=== PATIENT | male | born 1960 | race Caucasian/White ===

== ENCOUNTER 2024-06-12 06:42 | Emergency (ER) | payer OTHER, SELFPAY ==
--- NOTE | ~2024-06-12 | CT_ITS ---
EXAMINATION: CT abdomen pelvis wo con DATE: 06/12/2024 07:51 INDICATION: Left flank pain TECHNIQUE: Computed tomography (CT) of the abdomen and pelvis was performed without intravenous contr ast. Automated exposure control and iterative reconstruction technique were employed. The dose-length product was 270.59 mGy-cm. COMPARISON: None FINDINGS: Lung bases are clear. Small sliding-type hiatal hernia which contains the wrap of a Cony fundoplica tion.. Surgical clips along the diaphragmatic both sides of the thoracic hiatus. There are a few subc entimeter low-attenuation hepatic cysts. A few splenic calcifications consistent with old granulomato us disease. Pancreas and bilateral adrenal glands are normal. 3 mm stone at the left ureterovesicular junction with mild left hydronephrosis. Bilateral renal cysts measuring up to 3.0 cm on the right. B ladder is normal. Bowels including the appendix are normal. No free intraperitoneal gas or fluid. No pathologically enlarged abdominal or pelvic lymphadenopathy. Severe lower lumbar spondylosis with L5- S1 instrumented anterior and posterior spinal fusion. IMPRESSION: 1. 3 mm stone at left ureterovesicular junction with mild left hydronephrosis. 2. Small sliding-type hiatal hernia containing the wrap of a Cony fundoplication. Reviewed, dictated and finalized at location A. IMPRESSION: 1. 3 mm stone at left ureterovesicular junction with mild left hydronephrosis. 2. Small sliding-type hiatal hernia containing the wrap of a Cony fundoplicat ion.
[2024-06-12 06:46] VITALS: BP 131/82; PULSE 71; RESP 18; TEMP 36.5; O2SAT 98
[2024-06-12 07:50] LABS: Add Urine Microscopic? YES; Appearance Urine Clear (Clear); Bacteria Urine None Seen /hpf; Bilirubin Urine Negative (Negative); Blood Urine 1+ (Negative); Color Urine Yellow (Yellow); Glucose Urine UA Negative (Negative); Ketones Urine Negative (Negative); Leukocyte Esterase Ur Negative LEU/UL (Negative); Nitrate Urine Negative (Negative); Non Pathogenic Casts 0-2; Protein Urine Negative (Negative); Specific Grav Ur 1.017 (1.001-1.035); Squamous Epithelial Cell Urine None Seen /hpf (Few); Urobilinogen Urine 0.2 mg/dL (<2.0); WBC Urine 0-5 /hpf (0-3); pH Urine 8.5 (5.0-9.0)
[2024-06-12] MEDS: ONDANSETRON INJ 4 MG/2 ML VIAL IV PUSH (07:50)
[2024-06-12] MEDS: SODIUM CHLORIDE 0.9% IV 1,000 ML 999 ML IV CONT (07:50)
[2024-06-12] MEDS: MORPHINE SULFATE (*CRX) 4 MG/ML INJ IV PUSH (07:51)
--- OUTSIDE RECORDS SUMMARY | 2024-06-12 08:13 | XMS_ITS | Clinical Summary ---
Author Organization [facility] Address [address] [place] [address] Care Team Providers Care Truck Driving Instructor Name Role Phone Avery Dotson MD Primary Care Provider [phone] Enedina Coello DO Unavailable [phone] Klever Norman MD Unavailable [phone] Allergies No known active allergies Medications lisinopriL (PRINIVIL,ZESTRI L) 20 mg tabletIndication s:hypertension Take 1 tablet (20 mg total) by mouth daily Active tamsulosin (FLOMAX) 0.4 mg extended release capsuleIndicatio ns:benign prostatic hyperplasia with lower urinary tract sx,urinary retention Take 1 capsule (0.4 mg total) by mouth daily with dinner 30 capsule 09/19/2021 Active Vitamin D2 1,250 mcg (50,000 unit) capsule TAKE ONE CAPSULE BY MOUTH ONCE A WEEK 12 capsule 02/09/2022 Active naproxen sodium 220 mg capsule Take 220 mg by mouth every 12 (twelve) hours Active Active Problems Problem Noted Date Diagnosed Date Status post lumbar and lumbo sacral fusion by anterior technique 10/28/2021 Assessment & Plan (01/20/2023 11:30 AM FINISHING RANGE OPERATOR): Mr. Munroe is status post anterior and posterior lumbar decompression and fusion in September of 2021. He has had improvement in his leg symptoms after surgery. The patient returned to work with limitations. 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 He reports extreme difficulty with performing his duties at work and is in the process of applying for disability. We discussed that I am happy to provide supporting documentation, but do not coordinate disability applications. He reports that he is difficulty performing any kind of activity after a full day's work. He reports that he is much more active when has not recently worked. We discussed that I do not see any compressive pathology that would benefit from surgical intervention. He does have collapse of the disc space at L4-5 Which may be related to his back pain. The other disc levels appear normal. We discussed that low back pain as a symptom is very difficult to treat and can be poorly responsive to surgical intervention. Compression of nerve roots Predictably responds well to surgical intervention. We discussed that there is no way to predict whether or not he will develop further pathology and be a candidate for surgical intervention in the future or what pathology will progress over time. He is aware that this practice is closing in April. We will not set up a scheduled appointment at this time. Consideration could be given to performing a functional capacity evaluation to objectively determine ability to work at his current job and limitations. Assessment & Plan (09/22/2022 4:05 PM CDT): Mr. Munroe is status post anterior and posterior lumbar fusion with good relief of his radicular symptoms. He has developed progressive back pain that is interfering with his ability to work and perform normal activities. He has significant disc collapse and Modic changes at the level above the fusion (L4-5). We will get a new MRI of the lumbar spine to evaluate for any progressive changes at this level. We will refer him to Dr. Lopez of pain management for possible L4-5 injections. We will give him a work slip to limit his activity to a normal 40 hour work week without over time as this exacerbates his low back pain. I plan to see him back in 4 months for re-evaluation with no new films at that time. Assessment & Plan (04/07/2022 1:29 PM FINISHING RANGE OPERATOR): Mr. Munroe is status post anterior and posterior L5-S1 decompression/fusion. He has had marked improvement in his back and leg symptoms. He is walking 4 miles day. 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 I have encouraged him to increase his activity in stable with the plan of return to work at full duty in July. If he feels that he cannot go back at this time, I would recommend formal functional capacity evaluation to evaluate any restrictions. I plan to see him back at 6 months with no new films at that time. Assessment & Plan (12/16/2021 1:31 PM CDT): PLAN: - Start physical therapy/aqua therapy/home exercise program - May wean off brace. - May resume NSAIDs as needed. WORK STATUS: - OFF WORK FOLLOW UP APPT: With Dr. Vasquez in 3 months with AP/LAT/Flexion/Extension Lumbar spine films and discussion regarding return to work. Preop MRI CD returned to the patient. Assessment & Plan (10/28/2021 10:25 AM CDT): PLAN: - continue activity restrictions as outlined prior to surgery - Renew medications: When due will renew Vitamin D3 50,000 for an additional 12 weeks. - Continue brace. - After 6 weeks, patient may resume NSAIDs, may increase activity as tolerated, wean off the brace. 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 Vasquez in 6-8 weeks with Flexion/Extension Lumbar spine films. Hiatal hernia with GERD 03/28/2019 Overview (03/28/2019): Added automatically from request for surgery [id number] Hypertensive lower esophageal sphincter 02/24/20 19 Overview (02/23/2019): Added automatically from request for surgery [id number] Dysphagia 02/23/2019 Overview (02/23/2019): Added automatically from request for surgery [id number] Hiatal hernia 02/23/2019 Overview (02/23/2019): Added automatically from request for surgery [id number] Family history of colon cancer 01/12/2019 Resolved Problems Problem Noted Date Diagnosed Date Resolved Date Lumbosacral radiculopathy at L4 09/18/2021 03/24/2022 Lumbar radiculopathy 09/15/2021 023 Intervertebral disc disorder with radiculopathy of lumbar region 07/17/2021 3 Assessment & Plan (07/17/2021 3:37 PM CDT): Mr. Munroe has a left L5 radiculopathy with motor weakness. Workup reveals severe foraminal stenosis at L5-S1 on the left with collapse of the disc space and decrease in the rostral caudal and anterior posterior dimensions. He will need interbody fusion to increase the disc space height. Ideally this would be done from the front. We will have him evaluated by Dr. Adrián holloway. He has had previous upper abdominal surgeries. If he is a candidate, I would prefer to do L5-S1 LONG TERM followed by a stage II posterior L5-S1 decompression and fusion/fixation. If we were not able to approach anteriorly, I would attempt to do an interbody fusion from the back (TLIF) with increased chance of failure for fusion. We will decide on the final procedure once Dr. Holloway has rendered his opinion. Encounters Date Type Department Care Team Description 06/01/2024 [facility] - [facility] Minimally Invasive Surgery [address], [place] [address] Rivka Cheatham from Last 3 Months Surgical History Surgery Date Site/Laterality Comments ELBOW SURGERY Left CARPAL TUNNEL RELEASE 01/06/2019 - 02/04/2019 Bilateral COLONOSCOPY ESOPHAGOSCOPY / EGD ESOPHAGEAL DILATION 01/06/2019 - 02/04/2019 ESOPHAGEAL MOTILITY STUDY 01/06/2019 - 02/04/2019 OTHER SURGICAL HISTORY Barium Swallow CARPAL TUNNEL RELEASE 03/08/2012 - 03/07/2013 CARPAL TUNNEL RELEASE 03/08/2016 - 03/07/2017 MICRODISCECTOMY LUMBAR 03/08/2007 - 03/07/2008 DIAPHRAGMATIC HERNIA REPAIR 06/07/2019 - 07/06/2019 LATERAL FUSION LUMBAR SPINE 09/05/2021 - 10/05/2021 S/P L5-S1 JULIA/PSF (Pedro) Medical History Medical History Date Comments Hypertension Dysphagia Hiatal hernia Neuritis or radiculitis due to rupture of lumbar intervertebral disc Obesity Family History Medical History Relation Name Comments Diabetes type II Father Hypertension Father valve replaced Father Diabetes type II Mother Hypertension Mother Stroke Mother Breast cancer Sister x3 sisters Diabetes Sister Hypertension Sister Relation Name Status Comments Father Mother Sister Social History Tobacco Use Types Packs/Day Years Used Date Smoking Tobacco: Never Smokeless Tobacco: Never Tobacco Cessation:Counseling Given: Not Answered Alcohol Use Standard Drinks/Week Comments Never 0 (1 standard drink = 0.6 oz pur e alcohol) Social Connection and Isolation Panel [NHANES] A nswer Date Recorded In a typical week, how many times do you talk on the phone with family, friends, or neighbors? Three times a week 09/17/19 How often do you get togethe r with friends or relatives? Twice a week 09/16/2021 How often do you attend chur ch or religion services? 1 to 4 times per year 09/16/2021 Do you belong to any clubs o r organizations such as synagogue groups, unions, fraternal or athletic groups, or school groups? No 09/16/2021 How often do you attend meet ings of the clubs or organizations you belong to? Never 09/16/2021 Are you , , di vorced, , never , or living with a partner? 09/16/2021 AUDIT-C Answer Date Recorded Q1: How often do you have a drink containing alcohol? Never 09/18/2021 Q2: How many drinks containi ng alcohol do you have on a typical day when you are drinking? Patient does not drink Q3: How often do you have si x or more drinks on one occasion? Never 09/18/2021 Overall Financial Resource Strain (CARDIA) Answe r Date Recorded How hard is it for you to pa y for the very basics like food, housing, medical care, and heating? Not very hard 09/16/2021 PHQ-2 Answer Date Recorded PHQ-2 Total Score 2 07/17/2021 PRAPARE - Transportation Answer Date Re corded In the past 12 months, has l ack of transportation kept you from medical appointments or from getting medications? No 09/05 In the past 12 months, has l ack of transportation kept you from meetings, work, or from getting things needed for daily living? No 09/16/2021 Sex and Gender Information Value Date Recorded Sex Assigned at Not on file Legal Sex Male 12:25 PM FINISHING RANGE OPERATOR Gender Identity Not on file Sexual Orientation Not on file Obstetrics History Last Filed Vital Signs Vital Sign Reading Time Taken Comments Blood Pressure 125/70 09/22/2022 11:16 AM CDT Pulse 56 09/22/2022 11:16 AM CDT Temperature 37 C (98.6 F) 10/28/2021 10:02 AM CDT Respiratory Rate 14 09/22/2022 11:16 AM CDT Oxygen Saturation 98% 09/19/2021 7:35 AM CDT Inhaled Oxygen Concentration - - Weight 91.2 kg (201 lb 1 oz) 09/18/2021 6:15 AM CDT Height 170.2 cm (5' 7 ) 09/18/2021 6:15 AM CDT Body Mass Index 31.49 09/18/2021 6:15 AM CDT Plan of Treatment Health Maintenance Due Date Last Done Comments Colon Cancer Screening-Colonoscopy 1960 Hepatitis C Screening 1960 Prostate Cancer Screening-PSA 1960 DTaP/Tdap/Td Vaccine (1 - Tdap) 11/02/1970 Hepatitis B Screening 11/02/1977 Regular Well Visit/Exam 18-64 11/02/1977 Zoster Vaccine (2 of 2) 01/23/2022 11/28/2021 Depression Screening 07/17/2022 07/17/2021 Covid-19 Vaccine ( - 2023-2 5 season) 2023 02/26/2021, 06/10/2020, 05/03/2020 Influenza Vaccine (#1) 2023 Pneumococcal vaccine <65 Aged Out No longer eligible based on patient's age to complete this topic Medical Devices Implanted Type Area Broomcorn Grader Device Identifier Shelf Expiration Date Model / Serial / Lot Wl [employer] [id number] [place] Bio-A 10x7cm Reinforcement Tissue Mesh Surgical Synthetic - [id number] - [id number] Implanted:Qty: 1 on 05/17/2019 by Prema Arellano MD at [facility] N/A: Esophagus Wl [employer] [id number] 01/30/2022 [id number] / [id number] / Allograft Bone Putty 2.5cc 700-025 - [id number] Implanted:Qty: 1 on 09/15/2021 by Lukas Vasquez MD at [facility] N/A: Spine Lumbar Cer[employer] Inc [id number] 01/06/2024 700-025 / / [id number] Core Link F3d [id number] 15d Cage Spinal Alif [id number] - [id number] - [id number] Implanted:Qty: 1 on 09/15/2021 by Lukas Vasquez MD at [facility] N/A: Spine Lumbar Core Link [id number] 05/09/2025 [id number] / [id number] / [id number] Allograft Bone Putty 2.5cc 700-025 - [id number] Implanted:Qty: 1 on 09/15/2021 by Lukas Vasquez MD at [facility] N/A: Spine Lumbar [employer] Inc [id number] 03/07/2024 700-025 / / [id number] Core Link Reinaldo 17mm Spine Lumbar Anterior Plate Bone Nonsterile 41450-171 - [id number] Implanted:Qty: 1 on 09/15/2021 by Lukas Vasquez MD at [facility] N/A: Spine Lumbar Core Link [id number] / / Core Link Reinaldo 5.5mm 28mm Spinal Lumbar Anterior Screw Bone Nonsterile 63615-50 - [id number] Implanted:Qty: 4 on 09/15/2021 by Lukas Vasquez MD at [facility] N/A: Spine Lumbar Core Link 97976-57 / / Core Link Screw [place] Mis Rb Set 20388-09 - [id number] Implanted:Qty: 4 on 09/18/2021 by Lukas Vasquez MD at [facility] N/A: Lumbar-Sacra l Spine Core Link [id number] / / Core Link Screw [place] Mis Rb Cannulated 7.5x40mm 63220-25 - [id number] Implanted:Qty: 4 on 09/18/2021 by Lukas Vasquez MD at [facility] N/A: Lumbar-Sacra l Spine Core Link [id number] / / Core Link Jose Spinal Thoracolumbar Pre Bent Mis Reduced Lordosis [place] 5.5x40mm [place] Chromium [id number] - [id number] Implanted:Qty: 2 on 09/18/2021 by Lukas Vasquez MD at [facility] N/A: Lumbar-Sacra l Spine Core Link [id number] / / Insurance [place]WM [place] O[place] Advance Directives For more information, please contact: [phone] * Full Code (Latest Code Status on File) Date Activated Date Inactivated Comments 09/18/2021 12:35 PM 09/19/2021 8:55 PM * Full Code Date Activated Date Inactivated Comments 09/15/2021 12:30 PM 09/16/2021 6:01 PM * Full Code Date Activated Date Inactivated Comments 05/17/2019 9:16 PM 05/19/2019 4:38 PM * Full Code Date Activated Date Inactivated Comments 03/17/2019 10:17 AM 03/17/2019 6:28 PM Care Teams Truck Driving Instructor Relationship Specialty Start Date End Date Avery Dotson MD [address] [place] [address] PCP - General Family Practice 02/21/19 Enedina Coello DO [address] [place] [address] Referring Physician Internal Medicine 02/22/19 Klever Norman MD [address] [place] [address] Referring Physician Gastroenterology 03/22/19
--- OUTSIDE RECORDS SUMMARY | 2024-06-12 08:13 | XMS_ITS | Encounter Summary ---
Author Organization [facility] Address [address] [place] [address] Phone Care Team Providers Care Traveling Sales Executive Name Role Phone Avery Dotson MD Primary Care Provider [phone] Encounter Details Date Type Department Care Team (Late st Contact Info) Description 03/17/2019 Scanned Document Non [facility] Referring Docs Provider, Outside Social History Tobacco Use Types Packs/Day Years Used Date Smoking Tobacco: Never Smokeless Tobacco: Never Sex and Gender Information Value Date Recorded Sex Assigned at Not on file Legal Sex Male 2:11 PM CDT Gender Identity Not on file Sexual Orientation Not on file documented as of this encounter Plan of Treatment Not on file documented as of this encounter Visit Diagnoses Not on filedocumented in this encounter Care Teams Traveling Sales Executive Relationship Specialty Start Date End Date Avery Dotson MD [address] [place] [id number] PCP - General Family Medicine 07/20/18 documented as of this encounter
--- OUTSIDE RECORDS SUMMARY | 2024-06-12 08:13 | XMS_ITS | Encounter Summary ---
Author Organization [facility] Address [address] [place] [address] Phone Care Team Providers Care Machine Sand Mixer Name Role Phone Avery Dotson MD Primary Care Provider [phone] Encounter Details Date Type Department Care Team (Late st Contact Info) Description 03/28/2019 Scanned Document Non [facility] Referring Docs Paulina Arellano MD [address] [facility] [address] [place] [address] Social History Tobacco Use Types Packs/Day Years [...] on filedocumented in this encounter Care Teams Machine Sand Mixer Relationship Specialty Start Date End Date Avery Dotson MD [address] [place] [address] PCP - General Family Medicine 07/20/18 documented as of this encounter
--- OUTSIDE RECORDS SUMMARY | 2024-06-12 08:13 | XMS_ITS | Encounter Summary ---
Author Organization [facility] Address [address] [place] [address] Phone Care Team Providers Care Cmo & President Name Role Phone Avery Dotson MD Primary Care Provider [phone] Encounter Details Date Type Department Care Team (Late st Contact Info) Description 11/21/2018 Telephone [facility] 1st Floor Gastroenterology [address] [place] [address] Enedina Coello DO Social History Tobacco Use Types Packs/Day Years Used Date Smoking Tobacco: Never Smokeless Tobacco: Never Sex and Gender Information Value Date Recorded Sex Assigned at Not on file Legal Sex Male 2:11 PM CDT Gender Identity Not on file Sexual Orientation Not on file documented as of this encounter Miscellaneous Notes * Telephone Encounter - Erma Coe - 01/04/2019 10:45 AM CDT pt's spouse Linnette calling to confirm prep. Had concerns with taking second dose so will have pt start 2nd dose of Miralax 6 hours prior to report time instead of the 4 hours. Linnette states will have to leave 2-3 hours prior to the report time to get here on time for the procedure * Telephone Encounter - Eri Cedeno LPN - 11/21/2018 1:15 PM CDT Pt a walk in from office. Patient was verified by name and and procedures scheduled. Pt was informed of need for inventory associate and driver/someone to stay in I while pt is here and take pt home and split prep. Split prep instructions verbally reviewed with patient and given along with note with prep medicationslisted. documented in this encounter Plan of Treatment Not on file documented as of this encounter Visit Diagnoses Not on filedocumented in this encounter Care Teams Cmo & President Relationship Specialty Start Date End Date Avery Dotson MD [address] [place] [address] PCP - General Family Medicine 07/20/18 documented as of this encounter
--- OUTSIDE RECORDS SUMMARY | 2024-06-12 08:13 | XMS_ITS | Referral Summary ---
Author Organization [facility] Address [address] [place] [address] Care Team Providers Care Yard Stocker Name Role Phone Avery Dotson MD Primary Care Provider Enedina Coello DO Unavailable [phone] Klever Norman MD Unavailable [phone] Encounters Date Type Department Care Team Description 06/01/2024 Telephone [facility]) - [facility] Minimally Invasive Surgery [address], [place] [address] Rivka Cheatham from Last 3 Months Allergies No known active allergies Medications lisinopriL [...] 10/28/2021 Assessment & Plan (01/20/2023 11:30 AM LEARNING CENTER COORDINATOR): Mr. Munroe is status post anterior and posterior lumbar decompression and fusion in September of 2021. He has had improvement in his leg symptoms after surgery. The patient returned to work with limitations. 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 He reports extreme difficulty with performing [...] time. Assessment & Plan (04/07/2022 1:29 PM LEARNING CENTER COORDINATOR): Mr. Munroe is status post anterior and posterior L5-S1 decompression/fusion. He has had marked improvement in his back and leg symptoms. He is walking 4 miles day. 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 [...] (03/28/2019): Added automatically from request for surgery [id number] Hypertensive lower esophageal sphincter 02/24/20 19 Overview (02/23/2019): Added automatically from request for surgery [id number] Dysphagia 02/23/2019 Overview (02/23/2019): Added automatically from request for surgery [id number] Hiatal hernia 02/23/2019 Overview (02/23/2019): Added automatically from request for surgery [id number] Family history of colon cancer 01/12/2019 Resolved [...] candidate, I would prefer to do L5-S1 SENIOR CARE followed by a stage II posterior L5-S1 decompression and fusion/fixation. If we were not able to approach anteriorly, I would attempt to do an interbody fusion from the back (TLIF) with increased chance of failure for fusion. We will decide on the final procedure once Dr. Holloway has rendered his opinion. Social History Tobacco Use Types Packs/Day Years [...] often do you attend chur ch or restorationist services? 1 to 4 times per year 09/16/2021 Do you belong to any clubs o r organizations such as anabaptism groups, unions, fraternal or athletic groups, or [...] on file Legal Sex Male 12:25 PM LEARNING CENTER COORDINATOR Gender Identity Not on file Sexual Orientation Not on file Last Filed Vital Signs Vital Sign Reading [...] 09/18/2021 6:15 AM CDT Plan of Treatment Not on file Medical Devices Implanted Type Area Engineering Technician Device Identifier Shelf Expiration Date Model / Serial / Lot Wl [employer] [id number] [place] Bio-A 10x7cm Reinforcement Tissue Mesh Surgical Synthetic - [id number] - [id number] Implanted:Qty: 1 on 05/17/2019 by Prema Arellano MD at [facility] N/A: Esophagus Wl [employer] [id number] 01/30/2022 [id number] / [id number] / Allograft Bone Putty 2.5cc 700-025 - [id number] Implanted:Qty: 1 on 09/15/2021 by Lukas Vasquez MD at [facility] N/A: Spine Lumbar Cer[employer] Inc [id number] 01/06/2024 700-025 / / [id number] Core Link F3d [id number] 15d Cage Spinal Alif [id number] - [id number] - [id number] Implanted:Qty: 1 on 09/15/2021 by Lukas Vasquez MD at [facility] N/A: Spine Lumbar Core Link [id number] 05/09/2025 [id number] 1514 / [id number] / [id number] Allograft Bone Putty 2.5cc 700-025 - [id number] Implanted:Qty: 1 on 09/15/2021 by Lukas Vasquez MD at [facility] N/A: Spine Lumbar Cer[employer] Inc [id number] 03/07/2024 700-025 / / [id number] Core Link Reinaldo 17mm Spine Lumbar Anterior Plate Bone Nonsterile 65854-754 - [id number] Implanted:Qty: 1 on 09/15/2021 by Lukas Vasquez MD at [facility] N/A: Spine Lumbar Core Link 80652-11 7 / / Core Link Reinaldo 5.5mm 28mm Spinal Lumbar Anterior Screw Bone Nonsterile 94325-95 - [id number] Implanted:Qty: 4 on 09/15/2021 by Lukas Vasquez MD at [facility] N/A: Spine Lumbar Core Link 35921-59 / / Core Link Screw [place] Mis Rb Set 86898-89 - [id number] Implanted:Qty: 4 on 09/18/2021 by Lukas Vasquez MD at [facility] N/A: Lumbar-Sacra l Spine Core Link 51382-96 / / Core Link Screw [place] Mis Rb Cannulated 7.5x40mm 55589-37 - [id number] Implanted:Qty: 4 on 09/18/2021 by Lukas Vasquez MD at [facility] N/A: Lumbar-Sacra l Spine Core Link 99913-73 / / Core Link Jose Spinal Thoracolumbar Pre Bent Mis Reduced Lordosis [place] 5.5x40mm [place] Chromium [id number] - [id number] Implanted:Qty: 2 on 09/18/2021 by Lukas Vasquez MD at [facility] N/A: Lumbar-Sacra l Spine Core Link [id number] / / Insurance [employer] [place] Zo[employer] [place] Advance Directives For more information, please contact: [phone] * Full Code (Latest Code Status on File) Date Activated Date Inactivated Comments 09/18/2021 12:35 PM 09/19/2021 8:55 PM * Full Code Date Activated Date Inactivated Comments 09/15/2021 12:30 PM 09/16/2021 6:01 PM * Full Code Date Activated Date Inactivated Comments 05/17/2019 9:16 PM 05/19/2019 4:38 PM * Full Code Date Activated Date Inactivated Comments 03/17/2019 10:17 AM 03/17/2019 6:28 PM Care Teams Yard Stocker Relationship Specialty Start Date End Date Avery Dotson MD [address] [place] [address] PCP - General Family Practice 02/21/19 Enedina Coello DO [address] [place] [address] Referring Physician Internal Medicine 02/22/19 Klever Norman MD [address] [place] [address] Referring Physician Gastroenterology 03/22/19
--- OUTSIDE RECORDS SUMMARY | 2024-06-12 08:13 | XMS_ITS | Encounter Summary ---
Author Organization [employer] [facility] Address [address] [place] [address] Phone Care Team Providers Care Telephone Worker Name Role Phone Avery Dotson MD Primary Care Provider [phone] Encounter Details Date Type Department Care Team (Late st Contact Info) Description 01/16/2020 Patient Related Communication [facility] Senior Formulation Scientist Provider, Interface Default Social History Tobacco Use Types Packs/Day Years [...] on filedocumented in this encounter Care Teams Telephone Worker Relationship Specialty Start Date End Date Avery Dotson MD [address] DO [address] [place] [id number] PCP - General Family Medicine 07/20/18 documented as of this encounter
--- OUTSIDE RECORDS SUMMARY | 2024-06-12 08:13 | XMS_ITS | Clinical Summary ---
Author Organization [facility] [facility] Address [address] [place] [address] Phone Care Team Providers Care Shop Mechanic Helper Name Role Phone Avery Dotson MD Primary Care Provider [phone] Allergies No known active allergies Medications lisinopril 10 mg tablet Take 10 mg by mouth every day Active aspirin enteric coated 81 mg tablet, delayed release Take 81 mg by mouth every day Active Active Problems Problem Noted Date Diagnosed Date Family history of colon cancer 01/12/2019 Dysphagia, pharyngoesophageal phase Social History Tobacco Use Types Packs/Day Years Used Date Smoking Tobacco: Never Smokeless Tobacco: Never Sex and Gender Information Value Date Recorded Sex Assigned at Not on file Legal Sex Male 2:11 PM CDT Gender Identity Not on file Sexual Orientation Not on file Last Filed Vital Signs Vital Sign Reading Time Taken Comments Blood Pressure 127/80 01/13/2019 1:17 PM PHOTO OFFSET PRINTER Pulse 56 01/13/2019 1:17 PM PHOTO OFFSET PRINTER Temperature 36.4 C (97.5 F) 01/12/2019 10:08 AM PHOTO OFFSET PRINTER Respiratory Rate 16 01/13/2019 1:17 PM PHOTO OFFSET PRINTER Oxygen Saturation 100% 01/13/2019 1:17 PM PHOTO OFFSET PRINTER Inhaled Oxygen Concentration - - Weight 94.8 kg (209 lb) 01/13/2019 1:14 PM PHOTO OFFSET PRINTER Height 172.7 cm (5' 8 ) 01/13/2019 1:14 PM PHOTO OFFSET PRINTER Body Mass Index 31.78 01/13/2019 1:14 PM PHOTO OFFSET PRINTER Plan of Treatment Health Maintenance Due Date Last Done Comments MMR Vaccines (1 of 1 - Standard series) 11/02/1960 Depression Screening 1971 DTaP/Tdap/Td Vaccines (1 - Tdap) 11/02/1978 Lipid Panel 1979 Screening for Diabetes 11/02/1994 HCPOA Document on File 11/02/2009 Zoster (Shingles) Vaccine (1 of 2) 11/02/2009 Prostate Cancer Screening (PSA) 11/02/2014 COVID-19 Vaccine ( - 2023-2 5 season) 2023 Influenza Vaccine (#1) 2023 Diagnostic Colonoscopy 01/13/2024 9, 01/12/2019 RSV Vaccine (60+/) (1 - 1-dose 75+ series) 11/02/2034 HIB Vaccines Aged Out No longer eligi ble based on patient's age to complete this topic HPV Vaccines Aged Out No longer eligi ble based on patient's age to complete this topic Hepatitis A Vaccines Aged Out No long er eligible based on patient's age to complete this topic Hepatitis B Vaccines Aged Out No long er eligible based on patient's age to complete this topic IPV Vaccines Aged Out No longer eligi ble based on patient's age to complete this topic Meningococcal Vaccine (ACWY) Aged Out No longer eligible based on patient's age to complete this topic Pneumococcal Vaccines (0-64 Years) Aged Out No longer eligible b ased on patient's age to complete this topic Rotavirus Vaccines Aged Out No longer eligible based on patient's age to complete this topic Procedures Procedure Name Priority Date/Time Associated Diagnosis Comments COLONOSCOPY 01/12/2019 9:24 AM PHOTO OFFSET PRINTER from Last 3 Months or Most Recently Relevant to Health Maintenance Results * COLONOSCOPY (01/12/2019 9:24 AM PHOTO OFFSET PRINTER) REPORT COMPONENT Attending MD: Enedina Coello MD Procedure: Colonoscopy [facility] REPORT COMPONENT Findings: The perianal and digital rectal examinations were normal. The colon (entire examined portion) appeared normal. Non-bleeding internal hemorrhoids were found. The hemorrhoids were moderate. The terminal ileum appeared normal. [facility] REPORT COMPONENT Recommendation: - Patient has a contact number available for emergencies. The signs and symptoms of potential delayed complications were discussed with the patient. Return to normal activities tomorrow. Written discharge instructions were provided to the patient. - Resume previous diet. - Medication reconciliation was performed, and a list of the patient's discharge medications was provided to the patient. - Repeat colonoscopy in 5 years for surveillance due to family history. - Resume aspirin at prior dose today. [facility] Anatomical Region Laterality Modality Other 01/12/2019 9:24 AM PHOTO OFFSET PRINTER Impressions 01/12/2019 10:09 AM PHOTO OFFSET PRINTER Impression: - The entire examined colon is normal. - Non-bleeding internal hemorrhoids. - The examined portion of the ileum was normal. - No specimens collected. Narrative 01/12/2019 10:09 AM PHOTO OFFSET PRINTER Patient Name: Enrique Munroe Procedure Date: 01/12/2019 9:24 AM Gender: Male Date of : 1960 Indications: Screening in patient at increased risk: Family history of 1st-degree relative with colorectal cancer Medicines: Midazolam 2 mg IV, Fentanyl 100 micrograms IV, The level of sedation administered was moderate, Sedation Administered by an Endoscopy Nurse Estimated Blood Loss: EBL None. No blood products given. Grafts/Implants: None, No blood products administered. Implants or grafts: none Complications: No immediate complications. Estimated blood loss: None. Procedure: Pre-Anesthesia Assessment: - Prior to the procedure, a History and Physical was performed, and patient medications and allergies were reviewed. The patient's tolerance of previous anesthesia was also reviewed. The risks and benefits of the procedure and the sedation options and risks were discussed with the patient. All questions were answered, and informed consent was obtained. Prior Anticoagulants: The patient has taken aspirin. ASA Grade Assessment: II - A patient with mild systemic disease. After reviewing the risks and benefits, the patient was deemed in satisfactory condition to undergo the procedure. After I obtained informed consent, the scope was passed under direct vision. Throughout the procedure, the patient's blood pressure, pulse, and oxygen saturations were monitored continuously. The Colonoscope was introduced through the anus and advanced to the terminal ileum, with identification of the appendiceal orifice and IC valve. The colonoscopy was performed without difficulty. The patient tolerated the procedure well. The quality of the bowel preparation was evaluated using the BBPS (Mobile Bowel Preparation Scale) with scores of: Right Colon = 2 (minor amount of residual staining, small fragments of stool and/or opaque liquid, but mucosa seen well), Transverse Colon = 2 (minor amount of residual staining, small fragments of stool and/or opaque liquid, but mucosa seen well) and Left Colon = 2 (minor amount of residual staining, small fragments of stool and/or opaque liquid, but mucosa seen well). The total BBPS score equals 6. The quality of the bowel preparation was good. The terminal ileum, ileocecal valve, appendiceal orifice, and rectum were photographed. Providers: Enedina Coello MD Procedure Code(s): --- Technical --- G0105, Colorectal cancer screening; colonoscopy on individual at high risk Diagnosis Code(s): --- Technical --- Z80.0, Family history of malignant neoplasm of digestive organs K64.8, Other hemorrhoids CPT copyright 2017 [employer]. All rights reserved. The codes documented in this report are preliminary and upon bill cutter review may be revised to meet current compliance requirements. Attending Participation: I personally performed the entire procedure. I was present with the patient for the duration of sedation, supervised staff who had no other duties, and monitored the patient for the entire procedure. Enedina Coello MD 01/12/2019 10:09:11 AM Electronically signed and Authenticated by Enedina Coello MD Number of Addenda: 0 Note Initiated On: 01/12/2019 9:24 AM Enedina Coello DO GI PROCEDURES Final Resu lt from Last 3 Months or Most Recently Relevant to Health Maintenance Insurance [employer] [facility] [employer] [facility] Care Teams Shop Mechanic Helper Relationship Specialty Start Date End Date Avery Dotson MD [address] [place] [address] PCP - General Family Medicine 07/20/18
[2024-06-12 09:23] VITALS: BP 123/81; PULSE 66; RESP 16; O2SAT 98
--- NOTE | 2024-06-12 10:02 | ED_ITS ---
HPI - Male Genitourinary General Chief complaint: Urogenital-Male Stated complaint: L flank pain Time Seen by Provider: 06/12/24 07:00 History of Present Illness HPI Narrative: Patient is a 63-year-old male who presents ER with flank pain. Sudden onset last night. Sharp. Radiates around into the left groin. Concerned he may have urinary retention because he cannot urinate that he feels a need to urinate all times. No fevers or chills or sweats. Related Data Allergies Allergy/AdvReac Type Severity Reaction Status Date / Time No Known Allergies Allergy Verified 06/12/24 07:11 Review of Systems Review of Systems: All systems reviewed & are unremarkable except as noted in HPI and below Constitutional: Constitutional: Reports no additional constitutional complaints ENT: Reports system reviewed and no additional complaints, except as documented Cardiovascular: Cardiovascular: Reports no additional cardiovascular complaints Respiratory: Respiratory: Reports no additional respiratory complaints Gastrointestinal: Gastrointestinal: Reports no additional gastrointestinal complaints PMFSH Surgical History Surgical History (Updated 06/12/24 @ 18:28 by Kenton Siddiqui MD) History of back surgery Exam Narrative: GENERAL: Well-appearing, well-nourished, and in no acute distress. HEAD: Normocephalic, atraumatic. ENT: Mucous membranes moist. CHEST: Clear to auscultation. No respiratory distress. HEART: Regular rate and rhythm. Normal peripheral pulses. ABDOMEN: Soft, nontender, nondistended. No CVA tenderness EXTREMITIES: Normal range of motion. No edema. SKIN: Warm, dry, no rash. NEURO: Alert and oriented x3. PSYCH: Normal mood and affect. Course Course Emergency Course: Discussed with urology. Outpatient management with pain/nausea control as well as Flomax. Patient & comfortable treatment plan. No infection to the urine. Vital Signs Vital signs: Vital Signs Temperature 97.7 F 06/12/24 06:46 Pulse Rate 71 06/12/24 06:46 Respiratory Rate 18 06/12/24 06:46 Blood Pressure 131/82 06/12/24 06:46 Pulse Oximetry 98 06/12/24 06:46 Oxygen Delivery Room Air 06/12/24 06:46 Temperature 97.7 F 06/12/24 06:46 Pulse Rate 57 L 06/12/24 10:23 Respiratory Rate 18 06/12/24 10:23 Blood Pressure 149/82 H 06/12/24 10:23 Pulse Oximetry 100 06/12/24 10:23 Oxygen Delivery Room Air 06/12/24 06:46 MDM - Male Genitourinary Lab Data Labs: Lab Results 06/12/24 Range/Units 07:38 Urine Color Yellow (Yellow) Urine Appearance Clear (Clear) Urine pH 8.5 (5.0-9.0) Ur Specific [place] 1.017 (1.001-1.035) Urine Protein Negative (Negative) mg/dL Urine Glucose (UA) Negative (Negative) mg/dL Urine Ketones Negative (Negative) mg/dL Ur Blood (Man) 1+ H (Negative) Urine Nitrate Negative (Negative) Urine Bilirubin Negative (Negative) Urine Urobilinogen 0.2 (<2.0) mg/dL Leukocyte Esterase Rfl Negative (Negative) EDVIN/UL Urine RBC 11-20 H (0-2) /hpf Urine WBC 0-5 (0-3) /hpf Ur Squamous Epith Cells None seen (Few) /hpf Urine Bacteria None seen /hpf Urine Casts 0-2 Imaging Data Radiologist's impression: ITS Impressions Abdomen/Pelvis CT 06/12/24 07:57 IMPRESSION: 1. 3 mm stone at left ureterovesicular junction with mild left hydronephrosis. 2. Small sliding-type hiatal hernia containing the wrap of a Cony fundoplication. Discharge Plan Discharge Clinical Impression: Ureterolithiasis Patient Disposition: Home Condition: Stable Instructions: Ureteral Stones (ED) Additional Instructions: Return to the emergency department if you develop severe abdominal pain, severe nausea and vomiting to the point where you are unable to keep down fluids, if you develop chest pain or difficulty breathing, blood in your stool, dizziness or fainting, or if you develop any other new or concerning symptoms as these could be signs of more serious medical illness. Try to stay well hydrated. Patient Language: Citizen Of [place] Prescriptions: New tamsulosin 0.4 mg capsule 0.4 mg PO DAILY Qty: 7 0RF hydrocodone-acetaminophen 5-325 mg tablet 1 tablet PO Q6H PRN (Reason: pain) Qty: 20 0RF ondansetron 4 mg tablet,disintegrating 4 mg PO Q6H PRN (Reason: nausea and vomiting) Qty: 10 0RF Follow-up/Referrals: Mauri,Avery Carias [Other] Alexis Trevino MD [Physician] - 1 Week
[2024-06-12 10:23] VITALS: BP 149/82; PULSE 57; RESP 18; O2SAT 100
== END 2024-06-12 10:25 | disposition home or self-care (01) ==
PROVIDERS: Emergency Provider Emergency Medicine
DX: N13.2 Hydronephrosis with renal and ureteral calculous obstruction (principal); K44.9 Diaphragmatic hernia without obstruction or gangrene
CPT/HCPCS: 74176; 81001; 96361; 96374; 96375; 99284; J2270; J2405; J7030

== ENCOUNTER 2024-07-05 11:07 | Outpatient (CLI) | payer OTHER, SELFPAY ==
--- NOTE | ~2024-07-05 | XR_ITS ---
Supine and upright views of the abdomen Clinical history: Kidney stones Findings: Bowel gas pattern is nonspecific. No evidence for obstruction or free air. No abnormal mass lesion or calcification is seen. Lumbosacral spinal fixation hardware noted. Impression: No significant abnormality is seen. Reviewed, dictated and finalized at [facility]. Impression: No significant abnormality is seen.
--- OUTSIDE RECORDS SUMMARY | 2024-07-05 12:40 | XMS_ITS | Referral Summary ---
Author Organization [facility] Address [address] [place] [address] Care Team Providers Care Farm Equipment Maintenance Supervisor Name Role Phone Avery Dotson MD Primary Care Provider [phone] Enedina Coello DO Unavailable [phone] Klever Norman MD Unavailable [phone] Encounters Date Type Department Care Team Description 06/01/2024 Telephone [facility]) - [facility] Minimally Invasive Surgery [address], [place] [address] Rivka Cheatham from Last 3 [...] 10/28/2021 Assessment & Plan (01/20/2023 11:30 AM LOGGING SPECIALIST): Mr. Munroe is status post anterior and posterior lumbar decompression and fusion in September of 2021. He has had improvement in his leg symptoms after surgery. The patient returned to work with limitations. 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 He reports extreme difficulty with performing [...] time. Assessment & Plan (04/07/2022 1:29 PM LOGGING SPECIALIST): Mr. Munroe is status post anterior and posterior L5-S1 decompression/fusion. He has had marked improvement in his back and leg symptoms. He is walking 4 miles day. 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 [...] (03/28/2019): Added automatically from request for surgery [id number] Hypertensive lower esophageal sphincter 02/24/20 19 Overview (02/23/2019): Added automatically from request for surgery [id number] Dysphagia 02/23/2019 Overview (02/23/2019): Added automatically from request for surgery [id number] Hiatal hernia 02/23/2019 Overview (02/23/2019): Added automatically from request for surgery [id number] Family history of colon cancer 01/12/2019 Resolved [...] candidate, I would prefer to do L5-S1 JULIA followed by a stage II posterior L5-S1 [...] often do you attend chur ch or yazdanism services? 1 to 4 times per year 09/16/2021 Do you belong to any clubs o r organizations such as quaker groups, unions, fraternal or athletic groups, or [...] on file Legal Sex Male 12:25 PM LOGGING SPECIALIST Gender Identity Not on file Sexual Orientation [...] on file Medical Devices Implanted Type Area Eight Section Blower Device Identifier Shelf Expiration Date Model / Serial / Lot [employer] [id number] [place] Bio-A 10x7cm Reinforcement Tissue Mesh Surgical Synthetic - [id number] - [id number] Implanted:Qty: 1 on 05/17/2019 by Prema Arellano MD at [facility] N/A: Esophagus [employer] [id number] 01/30/2022 [id number] / [id number] / Allograft Bone Putty 2.5cc 700-025 - [id number] Implanted:Qty: 1 on 09/15/2021 by Lukas Vasquez MD at [facility] N/A: Spine Lumbar [employer] [id number] 01/06/2024 700-025 / / [id number] Core Link F3d [id number] 15d Cage Spinal Alif [id number] - [id number] - [id number] Implanted:Qty: 1 on 09/15/2021 by Lukas Vasquez MD at [facility] N/A: Spine Lumbar Core Link [id number] 05/09/2025 [id number] / [id number] / [id number] Allograft Bone Putty 2.5cc 700-025 - [id number] Implanted:Qty: 1 on 09/15/2021 by Lukas Vasquez MD at [facility] N/A: Spine Lumbar [employer] [id number] 03/07/2024 700-025 / / [id number] Core Link Reinaldo 17mm Spine Lumbar Anterior Plate Bone Nonsterile 48572-009 - [id number] Implanted:Qty: 1 on 09/15/2021 by Lukas Vasquez MD at [facility] N/A: Spine Lumbar Core Link [id number] / / Core Link Reinaldo 5.5mm 28mm Spinal Lumbar Anterior Screw Bone Nonsterile 37798-11 - [id number] Implanted:Qty: 4 on 09/15/2021 by Lukas Vasquez MD at [facility] N/A: Spine Lumbar Core Link 16720-61 / / Core Link Screw Elrosa Mis Rb Set 02227-61 - [id number] Implanted:Qty: 4 on 09/18/2021 by Lukas Vasquez MD at [facility] N/A: Lumbar-Sacra l Spine Core Link [id number] / / Core Link Screw Elrosa Mis Rb Cannulated 7.5x40mm 02948-81 - [id number] Implanted:Qty: 4 on 09/18/2021 by Lukas Vasquez MD at [facility] N/A: Lumbar-Sacra l Spine Core Link [id number] / / Core Link Jose Spinal Thoracolumbar Pre Bent Mis Reduced Lordosis Elrosa 5.5x40mm Jackson [employer] [id number] - [id number] Implanted:Qty: 2 on 09/18/2021 by Lukas Vasquez MD at [facility] N/A: Lumbar-Sacra l Spine Core Link [id number] / / Insurance Gigi Hill ND Gigi Hill ND Gigi Hill [place] Advance Directives For more information, please contact: [phone] * Full Code (Latest Code Status on File) Date Activated Date Inactivated Comments 09/18/2021 12:35 PM 09/19/2021 8:55 PM * Full Code Date Activated Date Inactivated Comments 09/15/2021 12:30 PM 09/16/2021 6:01 PM * Full Code Date Activated Date Inactivated Comments 05/17/2019 9:16 PM 05/19/2019 4:38 PM * Full Code Date Activated Date Inactivated Comments 03/17/2019 10:17 AM 03/17/2019 6:28 PM Care Teams Farm Equipment Maintenance Supervisor Relationship Specialty Start Date End Date Avery Dotson MD [address] [place] [address] PCP - General Family Practice 02/21/19 Enedina Coello DO [address] [place] [address] Referring Physician Internal Medicine 02/22/19 Klever Norman MD [address] [place] [address] Referring Physician Gastroenterology 03/22/19
--- OUTSIDE RECORDS SUMMARY | 2024-07-05 12:40 | XMS_ITS | Encounter Summary ---
Author Organization [facility] Address [address] [place] [address] Phone Care Team Providers Care Mold Insert Changer Name Role Phone Avery Dotson MD Primary Care Provider [phone] Encounter Details Date Type Department Care Team (Late st Contact Info) Description 03/17/2019 Scanned Document Non [facility] Referring Docs Provider, Outside Social History [...] on filedocumented in this encounter Care Teams Mold Insert Changer Relationship Specialty Start Date End Date Avery Dotson MD [address] [place] [address] PCP - General Family Medicine 07/20/18 documented as of this encounter
--- OUTSIDE RECORDS SUMMARY | 2024-07-05 12:40 | XMS_ITS | Encounter Summary ---
Author Organization [facility] Address [address] [place] [address] Phone Care Team Providers Care Manager Web Application Name Role Phone Avery Dotson MD Primary Care Provider [phone] Encounter Details Date Type Department Care Team (Late st Contact Info) Description 03/28/2019 Scanned Document Non [facility] Referring Docs Paulina Arellano MD [address] [facility] [address] [place] [address] Social History Tobacco Use Types Packs/Day Years [...] on filedocumented in this encounter Care Teams Manager Web Application Relationship Specialty Start Date End Date Avery Dotson MD [address] [place] [address] PCP - General Family Medicine 07/20/18 documented as of this encounter
--- OUTSIDE RECORDS SUMMARY | 2024-07-05 12:40 | XMS_ITS | Clinical Summary ---
Author Organization [facility] Address [address] [place] [address] Care Team Providers Care Raiser Helper Name Role Phone Avery Dotson MD Primary Care Provider [phone] Enedina Coello DO Unavailable [phone] Klever Norman MD Unavailable [phone] Allergies No known active allergies Medications lisinopriL [...] 10/28/2021 Assessment & Plan (01/20/2023 11:30 AM CITY DESIGNER): Mr. Munroe is status post anterior and posterior lumbar decompression and fusion in September of 2021. He has had improvement in his leg symptoms after surgery. The patient returned to work with limitations. 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 He reports extreme difficulty with performing [...] time. Assessment & Plan (04/07/2022 1:29 PM CITY DESIGNER): Mr. Munroe is status post anterior and posterior L5-S1 decompression/fusion. He has had marked improvement in his back and leg symptoms. He is walking 4 miles day. 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 [...] (03/28/2019): Added automatically from request for surgery [id number] Hypertensive lower esophageal sphincter 02/24/20 19 Overview (02/23/2019): Added automatically from request for surgery [id number] Dysphagia 02/23/2019 Overview (02/23/2019): Added automatically from request for surgery [id number] Hiatal hernia 02/23/2019 Overview (02/23/2019): Added automatically from request for surgery [id number] Family history of colon cancer 01/12/2019 Resolved [...] Date Type Department Care Team Description 06/01/2024 [facility] ([facility]) - [facility] Minimally Invasive Surgery [address], [place] [address] Rivka Cheatham from Last 3 Months Surgical [...] often do you attend chur ch or episcopal services? 1 to 4 times per year 09/16/2021 Do you belong to any clubs o r organizations such as moravian groups, unions, fraternal or athletic groups, or [...] on file Legal Sex Male 12:25 PM CITY DESIGNER Gender Identity Not on file Sexual Orientation [...] this topic Medical Devices Implanted Type Area Laboratory Technology Teacher Device Identifier Shelf Expiration Date Model / Serial / Lot [employer]l [employer] [id number] Sparta Bio-A 10x7cm Reinforcement Tissue Mesh Surgical Synthetic - [id number] - [id number] Implanted:Qty: 1 on 05/17/2019 by Prema Arellano MD at [facility] N/A: Esophagus W[employer] [id number] 01/30/2022 [id number] / [id number] / Allograft Bone Putty 2.5cc 700-025 - [id number] Implanted:Qty: 1 on 09/15/2021 by Lukas Vasquez MD at [facility] N/A: Spine Lumbar [employer] Inc [id number] 01/06/2024 700-025 / / [id number] Core Link F3d [id number] 15d Cage Spinal Alif [id number] - [id number] - [id number] Implanted:Qty: 1 on 09/15/2021 by Lukas Vasquez MD at [facility] N/A: Spine Lumbar Core Link [id number] 05/09/2025 [id number] / [id number] / [id number] Allograft Bone Putty 2.5cc 700-025 - [id number] Implanted:Qty: 1 on 09/15/2021 by Lukas Vasquez MD at [facility] N/A: Spine Lumbar [employer] [id number] 03/07/2024 700-025 / / [id number] Core Link Reinaldo 17mm Spine Lumbar Anterior Plate Bone Nonsterile 11528-446 - [id number] Implanted:Qty: 1 on 09/15/2021 by Lukas Vasquez MD at [facility] N/A: Spine Lumbar Core Link [id number] / / Core Link Reinaldo 5.5mm 28mm Spinal Lumbar Anterior Screw Bone Nonsterile 66304-55 - [id number] Implanted:Qty: 4 on 09/15/2021 by Lukas Vasquez MD at [facility] N/A: Spine Lumbar Core Link 76936-60 / / Core Link Screw Stanford Mis Rb Set 49850-79 - [id number] Implanted:Qty: 4 on 09/18/2021 by Lukas Vasquez MD at [facility] N/A: Lumbar-Sacra l Spine Core Link [id number] / / Core Link Screw Stanford Mis Rb Cannulated 7.5x40mm 94991-36 - [id number] Implanted:Qty: 4 on 09/18/2021 by Lukas Vasquez MD at [facility] N/A: Lumbar-Sacra l Spine Core Link [id number] / / Core Link Jose Spinal Thoracolumbar Pre Bent Mis Reduced Lordosis Stanford 5.5x40mm [place] Chromium [id number] - [id number] Implanted:Qty: 2 on 09/18/2021 by Lukas Vasquez MD at [facility] N/A: Lumbar-Sacra l Spine Core Link [id number] / / Insurance [employer] [place] [employer] [place] [employer] [place] Advance Directives For more information, please contact: [phone] * Full Code (Latest Code Status on File) Date Activated Date Inactivated Comments 09/18/2021 12:35 PM 09/19/2021 8:55 PM * Full Code Date Activated Date Inactivated Comments 09/15/2021 12:30 PM 09/16/2021 6:01 PM * Full Code Date Activated Date Inactivated Comments 05/17/2019 9:16 PM 05/19/2019 4:38 PM * Full Code Date Activated Date Inactivated Comments 03/17/2019 10:17 AM 03/17/2019 6:28 PM Care Teams Raiser Helper Relationship Specialty Start Date End Date Avery Dotson MD [address] [place] [address] [address] PCP - General Family Practice 02/21/19 Enedina Coello DO [address] [place] [address] Referring Physician Internal Medicine 02/22/19 Klever Norman MD [address] [place] [address] Referring Physician Gastroenterology 03/22/19
--- OUTSIDE RECORDS SUMMARY | 2024-07-05 12:40 | XMS_ITS | Encounter Summary ---
Author Organization [employer] [facility] Address [address] [place] [address] Phone Care Team Providers Care Insole Presser Name Role Phone Avery Dotson MD Primary Care Provider [phone] Encounter Details Date Type Department Care Team (Late st Contact Info) Description 11/21/2018 Telephone [facility] 1st Floor Gastroenterology [address] [place] [address] Enedina Coello DO Social History [...] scheduled. 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 Split prep instructions verbally reviewed with patient and given along with note with prep medicationslisted. documented in this encounter Plan of Treatment Not on file documented as of this encounter Visit Diagnoses Not on filedocumented in this encounter Care Teams Insole Presser Relationship Specialty Start Date End Date Avery Dotson MD [address] [place] [address] PCP - General Family Medicine 07/20/18 documented as of this encounter
--- OUTSIDE RECORDS SUMMARY | 2024-07-05 12:40 | XMS_ITS | Clinical Summary ---
Author Organization [facility] Address [address] [place] [address] Phone Care Team Providers Care Construction Ironworker Helper Name Role Phone Avery Dotson MD Primary Care Provider [phone] Allergies No known active allergies Medications lisinopril [...] Comments Blood Pressure 127/80 01/13/2019 1:17 PM PROJECT CONSULTANT Pulse 56 01/13/2019 1:17 PM PROJECT CONSULTANT Temperature 36.4 C (97.5 F) 01/12/2019 10:08 AM PROJECT CONSULTANT Respiratory Rate 16 01/13/2019 1:17 PM PROJECT CONSULTANT Oxygen Saturation 100% 01/13/2019 1:17 PM PROJECT CONSULTANT Inhaled Oxygen Concentration - - Weight 94.8 kg (209 lb) 01/13/2019 1:14 PM PROJECT CONSULTANT Height 172.7 cm (5' 8 ) 01/13/2019 1:14 PM PROJECT CONSULTANT Body Mass Index 31.78 01/13/2019 1:14 PM PROJECT CONSULTANT Plan of Treatment Health Maintenance Due Date Last Done Comments MMR Vaccines (1 of 1 - Standard series) 11/02/1960 Depression Screening 1971 DTaP/Tdap/Td Vaccines (1 - Tdap) 11/02/1978 Lipid Panel 1979 Screening for Diabetes 11/02/1994 HCPOA Document on File 11/02/2009 Pneumococcal Vaccines (50+) (1 of 1 - PCV) 11/02/2009 Zoster (Shingles) Vaccine (1 of 2) 11/02/2009 Prostate Cancer Screening (PSA) 11/02/2014 COVID-19 Vaccine (1 - 2023-2 5 season) 2023 Diagnostic Colonoscopy 01/13/2024 9, 01/12/2019 Influenza Vaccine (Season Ended) 2024 RSV Vaccine (60+/) (1 - 1-dose 75+ [...] patient's age to complete this topic Meningococcal B Vaccine Aged Out No l onger eligible based on patient's age to complete this topic Meningococcal Vaccine (ACWY) Aged Out No longer eligible based on patient's age to complete this topic Rotavirus Vaccines Aged Out No longer eligible based on patient's age to complete this topic Procedures Procedure Name Priority Date/Time Associated Diagnosis Comments COLONOSCOPY 01/12/2019 9:24 AM PROJECT CONSULTANT from Last 3 Months or Most Recently Relevant to Health Maintenance Results * COLONOSCOPY (01/12/2019 9:24 AM PROJECT CONSULTANT) REPORT COMPONENT Attending MD: Enedina Coello MD Procedure: Colonoscopy [facility] REPORT COMPONENT Findings: The perianal and digital rectal examinations were normal. The colon (entire examined portion) appeared normal. Non-bleeding internal hemorrhoids were found. The hemorrhoids were moderate. The terminal ileum appeared normal. [facility] REPORT COMPONENT Recommendation: - Patient has a [...] - Resume aspirin at prior dose today. [facility] Anatomical Region Laterality Modality Other 01/12/2019 9:24 AM PROJECT CONSULTANT Impressions 01/12/2019 10:09 AM PROJECT CONSULTANT Impression: - The entire examined colon is normal. - Non-bleeding internal hemorrhoids. - The examined portion of the ileum was normal. - No specimens collected. Narrative 01/12/2019 10:09 AM PROJECT CONSULTANT Patient Name: Enrique Munroe Procedure Date: 01/12/2019 [...] bowel preparation was evaluated using the BBPS ([place] Bowel Preparation Scale) with scores of: Right [...] organs K64.8, Other hemorrhoids CPT copyright 2017 [employer]. All rights reserved. The codes documented in this report are preliminary and upon stock and station agent review may be revised to meet current [...] Most Recently Relevant to Health Maintenance Insurance [facility] Care Teams Construction Ironworker Helper Relationship Specialty Start Date End Date Avery Dotson MD [address] [place] [address] PCP - General Family Medicine 07/20/18
--- OUTSIDE RECORDS SUMMARY | 2024-07-05 12:40 | XMS_ITS | Clinical Summary ---
Author Organization [facility] Address [address] [place] [address] Care Team Providers Care Customer Account Manager Name Role Phone Avery Dotson MD Primary Care Provider [phone] Allergies No known active allergies Medications tamsulosin (FLOMAX) 0.4 MG Cap Take 1 capsule (0.4 mg total) by mouth nightly at bedtime. 2 Active lisinopril (PRINIVIL) 20 MG tabletIndications:H ypertension, unspecified type Take 1 tablet (20 mg total) by mouth daily. 90 tablet 1 5 Active ondansetron (ZOFRAN-ODT) 4 MG disintegrating tabletIndications:N ausea Take 1 tablet (4 mg total) by mouth every 8 (eight) hours as needed for Nausea. 10 tablet 5 Active Active Problems No known active problems Encounters Date Type Department Care Team Description 06/07/2024 Telephone [facility] [address] [place] [address] Avery Dotson MD Lab Results 06/06/2024 7:36 AM CDT - 06/06/2024 11:59 PM CDT Hospital Encounter [facility] - Laboratory [address] [place] [address] [address] Avery Dotson MD Discharge Disposition: Home or Self Care (Routine Discharge) 06/06/2024 Travel 05/30/2024 7:27 AM CDT - 05/30/2024 11:59 PM CDT [facility] [address] [place] [address] Avery Dotson MD Discharge Disposition: Home or Self Care (Routine Discharge) 05/30/2024 7:00 AM CDT Office Visit [facility] [address] [place] [address] Avery Dotson MD Physical (Patient is here for a physical. He also would like a referral to GI for a colonoscopy. His last colonoscopy was 5 years ago. It was done in [place]. /He is requesting medication for nausea. He has had history of surgery on his stomach. ) 05/30/2024 Orders Only [facility] [address] [place] [address] Avery Dotson MD 05/30/2024 Travel from Last 3 Months Immunizations Immunization Administration Dates Next Due MODERNA COVID-19 (12+) MRNA, LNP-S, PF, 100 MCG/ 0.5 ML DOSE 06/10/2020,05/03/2020 Shingrix 11/28/2021 Family History Medical History Relation Comments Diabetes Brother Diabetes Father Diabetes Mother Diabetes Sister Relation Status Comments Brother Father Mother Sister Social History Tobacco Use Types Packs/Day Years Used Date Smoking Tobacco: Never Smokeless Tobacco: Never Tobacco Cessation:Counseling Given: No Comments:Will not start smoking Alcohol Use Standard Drinks/Week Comments Not Currently 0 (1 standard drink = 0.6 oz pur e alcohol) PHQ-2 Answer Date Recorded Patient Health Questionnaire-2 Score 0 05/19/2023 Sex and Gender Information Value Date Recorded Sex Assigned at Not on file Legal Sex Male 10:06 PM MACHINE BURRER Gender Identity Not on file Sexual Orientation Not on file Last Filed Vital Signs Vital Sign Reading Time Taken Comments Blood Pressure 102/62 05/30/2024 6:46 AM CDT Pulse 60 05/30/2024 6:46 AM CDT Temperature 36.8 C (98.3 F) 05/30/2024 6:46 AM CDT Respiratory Rate 16 05/30/2024 6:46 AM CDT Oxygen Saturation 99% 05/30/2024 6:46 AM CDT Inhaled Oxygen Concentration - - Weight 96.2 kg (212 lb) 05/30/2024 6:46 AM CDT Height 170.2 cm (5' 7 ) 05/30/2024 6:46 AM CDT Body Mass Index 33.2 05/30/2024 6:46 AM CDT Plan of Treatment Health Maintenance Due Date Last Done Comments Hepatitis C 11/02/1977 DTaP, Tdap and Td Vaccines (1 - Tdap) 11/02/1978 Pneumococcal Vaccine: 50+ Years (1 of 1 - PCV) 11/02/2009 Zoster Vaccines (2 of 2) 01/23/2022 11/28/2021 COVID-19 Vaccine (3 - season) 2023 06/10/2020, 05/03/2020 PHQ-2 (Physician Campo) 03/08/2024 05/19/2023 Annual Physical 05/30/2025 05/30/2024, 05/06, 05/06/2022, Additional history exists Colorectal Cancer Screening Colonoscopy (10 Years) 01/12/2029 01/12/2019 RSV Immunization or 60+ Years (1 - 1-dose 75+ series) 11/02/2034 Meningococcal B Vaccine Aged Out No l onger eligible based on patient's age to complete this topic Meningococcal Vaccine Aged Out No leland edy eligible based on patient's age to complete this topic RSV Immunizations Under 20 Months Aged Out No longer eligible based on patient's age to complete this topic Procedures Procedure Name Priority Date/Time Associated Diagnosis Comments COMPREHENSIVE METABOLIC PANEL Routine 06/06/2024 7:36 AM CDT Renal insufficiency URINALYSIS, AUTO, COMPLETE Routine 05/30/2024 7:35 AM CDT Annual physical exam TSH W/REFLEX Routine 05/30/2024 7:27 AM CDT Annual physical exam PROSTATE SPECIFIC ANTIGEN,SCREENING Routine 05/30/2024 7:27 AM CDT Annual physical exam LIPID PANEL Routine 05/30/2024 7:27 AM CDT Annual physical exam COMPREHENSIVE METABOLIC PANEL Routine 05/30/2024 7:27 AM CDT Annual physical exam CBC W/DIFF AUTOMATED Routine 05/30/2024 7:27 AM CDT Annual physical exam COLONOSCOPY GENERIC (SCAN ORDER) 01/12/2019 from Last 3 Months or Most Recently Relevant to Health Maintenance Results * (ABNORMAL) COMPREHENSIVE METABOLIC PANEL (06/06/2024 7:36 AM CDT) Only the most recent of2 resultswithin the time period is included. SODIUM S/P/B 141 136 - 145 MMOL/L 06/06/2024 1:05 PM CDT [facility] POTASSIUM S/P/B 4.1 3.5 - 5.1 MMOL/L 06/06/2024 1:05 PM CDT [facility] CHLORIDE S/P/B 110 97 - 115 MMOL/L 06/06/2024 1:05 PM CDT [facility] CO2 26.0 21.0 - 32.0 MMOL/L 06/06/2024 1:05 PM CDT [facility] GLUCOSE 103 74 - 106 MG/DL 06/06/2024 1:05 PM CDT [facility] BUN 18 7 - 18 MG/DL 06/06/2024 1:05 PM CDT [facility] CREATININE S/P/B 1.41(H) 0.70 - 1.30 MG/DL 06/06/2024 1:05 PM CDT [facility] CALCIUM S/P/B 8.9 8.5 - 10.1 MG/DL 06/06/2024 1:05 PM CDT [facility] BILIRUBIN TOTAL S/P/B 0.5 0.2 - 1.0 MG/DL 06/06/2024 1:05 PM CDT [facility] ALKALINE PHOSPHATASE S/P/B 67 45 - 117 U/L 06/06/2024 1:05 PM CDT [facility] AST 12(L) 15 - 37 U/L 06/06/2024 1:05 PM CDT [facility] ALT 18 16 - 61 U/L 06/06/2024 1:05 PM T [facility] TOTAL PROTEIN S/P/B 6.7 6.4 - 8.2 G/DL 06/06/2024 1:05 PM CDT [facility] ALBUMIN S/P/B 4.0 3.4 - 5.0 G/DL 06/06/2024 1:05 PM CDT [facility] ANION GAP 5.0 2.0 - 10.0 MMOL/L 06/06/2024 1:05 PM T [facility] OSMOLALITY (CALC) 294 MOSM/KG 025 1:05 PM T [facility] Comment:REFERENCE RANGE NOT ESTABLISHED GFR ESTIMATE 56(L) >89 ML/MIN/1. 73 M2 06/06/2024 1:05 PM CDT [facility] GFR NOTES GFR REFERENCE S: 06/06/2024 1:05 PM T [facility] Comment: THE ESTIMATED GFR IS CALCULATED USING THE 2020 CKD-EPI EQUATION. THE FOLLOWING CATEGORIES FOR GRADING RENAL FUNCTION ARE RECOMMENDED BY THE INTERNATIONAL SOCIETY OF NEPHROLOGY (KDIGO 2012 CLINICAL PRACTICE GUIDELINE). G1,NORMAL OR HIGH: >89 ml/min/1.73 m2 G2,MILDLY DECREASED: 60-89 ml/min/1.73 m2 G3A,MILDLY TO MODERATELY DECREASED: 45-59 ml/min/1.73 m2 G3B,MODERATELY TO SEVERELY DECREASED: 30-44 ml/min/1.73 m2 G4,SEVERELY DECREASED: 15-29 ml/min/1.73 m2 G5,KIDNEY FAILURE: <15 ml/min/1.73 m2 06/06/2024 7:36 AM CDT us Avery Dotson MD LABORATORY Final Result [facility] [address] [place] [address], [place] [phone] * URINALYSIS, AUTO, COMPLETE (05/30/2024 7:35 AM CDT) COLOR (U) LIGHT ORANGE 05/30/2024 2:24 PM CDT [facility] TRANSPARENCY EXTREMELY TURBID 05/30/2024 2:24 PM CDT [facility] SPECIFIC GRAVITY (U) 1.021 1.003 - 1.030 05/30/2024 2:24 PM CDT [facility] U PH 5.5 5.0 - 9.0 05/30/2024 2:24 PM CDT [facility] LEUKOCYTES (U) NEGATIVE NEGATIVE 05/30/2024 2:24 PM CDT [facility] NITRITES NEGATIVE NEGATIVE 05/30/2024 2:24 PM CDT [facility] PROTEIN RANDOM (U) NEGATIVE NEGATIVE 05/30/2024 2:24 PM CDT [facility] GLUCOSE (U) NORMAL NORMAL 05/30/2024 2:24 PM CDT [facility] KETONES MG/DL (U) NEGATIVE NEGATIVE 05/30/2024 2:24 PM CDT [facility] UROBILINOGEN NORMAL NORMAL MG/DL 05/30/2024 2:24 PM CDT [facility] BILIRUBIN (U) NEGATIVE NEGATIVE 05/30/2024 2:24 PM CDT [facility] BLOOD (U) NEGATIVE NEGATIVE 05/30/2024 2:24 PM CDT [facility] MUCUS PRESENT 05/30/2024 2:24 PM CDT [facility] WBC/HPF 0-5 0 - 5 /HPF 05/30/2024 2:24 PM CDT [facility] RBC/HPF 0-5 0 - 5 /HPF 05/30/2024 2:24 PM CDT [facility] COMMENT (U) URINE RESULTS 05/30/2024 2:24 PM CDT [facility] URINE SPECIMEN OBTAINED BY CLEAN CATCH PROCEDURE / Unknown 05/30/2024 7:35 AM CDT us Avery Dotson MD URINE ORDERABLES Final Result Performing Organization Address [facility] Co de Phone Number [facility] [address] [place] [address], * TSH W/REFLEX (05/30/2024 7:27 AM CDT) TSH 0.985 0.358 - 3.740 uIU/ML 05/30/2024 2:26 PM CDT [facility] Comment: FREE T4 NOT INDICATED ASSAY PERFORMED BY CHEMILUMINESCENCE METHODOLOGY USING SIEMENS DIMENSION VISTA REAGENT. PATIENT RESULTS DETERMINED BY ASSAYS USING DIFFERENT MANUFACTURERS FOR METHODS MAY NOT BE COMPARABLE. 05/30/2024 7:27 AM CDT us Avery Dotson MD LABORATORY Final Result Performing Organization Address [facility] de Phone Number [facility] [address] [place] [address], * PROSTATE SPECIFIC ANTIGEN,SCREENING (05/30/2024 7:27 AM CDT) PSA 0.63 <4.00 NG/ML 05/30/2024 2:38 PM CDT [facility] Comment: The concentration of PSA in a given specimen determined with assays at different laboratories or from different manufacturers can vary due to differences in assay methods and reagent specificity. Values obtained with different assay methods cannot be used interchangeably. 05/30/2024 7:27 AM CDT us Avery Dotson MD LABORATORY Final Result Performing Organization Address [facility]/ZIP Co de Phone Number [facility] [address] [place] [address], * (ABNORMAL) LIPID PANEL (05/30/2024 7:27 AM CDT) Pathologist [facility] CHOLESTEROL 177 0 - 199 MG/DL 05/30/2024 2:26 PM CDT [facility] TRIGLYCERIDES 163(H) 0 - 149 MG/DL 05/30/2024 2:26 PM CDT [facility] HDL 49 >39 MG/DL 05/30/2024 2:26 PM CDT [facility] LDL (CALCULATED) 95 <100 MG/DL 05/31/19 2:26 PM CDT [facility] VLDL CALCULATION 33 MG/DL 05/31/19 2:26 PM CDT [facility] Comment:REFERENCE RANGE NOT ESTABLISHED CHOL/HDL RATIO 3.6 05/30/2024 2:26 PM CDT [facility] Comment:REFERENCE RANGE NOT ESTABLISHED LDL/HDL 2.0 05/30/2024 2:26 PM CDT [facility] Comment:REFERENCE RANGE NOT ESTABLISHED NON HDL CHOLESTEROL 128 MG/DL 05/30/2024 2:26 PM CDT [facility] Comment:REFERENCE RANGE NOT ESTABLISHED 05/30/2024 7:27 AM CDT Avery Dotson MD LABORATORY Final Result Performing Organization Address City/State/[facility] Co de Phone Number [facility] [address] [place] [address], * (ABNORMAL) CBC W/DIFF AUTOMATED (05/30/2024 7:27 AM CDT) Pathologist [facility] WBC 5.52 4.60 - 9.10 x10'3/uL 05/30/2024 1:46 PM CDT [facility] RBC 4.19(L) 4.40 - 5.50 x10'6/uL 05/30/2024 1:46 PM CDT [facility] HGB 13.1 13.1 - 16.0 G/DL 05/30/2024 1:46 PM CDT [facility] HCT 38.9(L) 39.8 - 48.5 % 05/30/2024 1:46 PM CDT [facility] MCV 92.8 83.0 - 98.0 FL 05/30/2024 1:46 PM CDT [facility] MCH 31.3 26.8 - 32.1 PG 05/30/2024 1:46 PM CDT [facility] MCHC 33.7 31.4 - 34.7 G/DL 05/30/2024 1:46 PM CDT [facility] RDW 12.6 11.6 - 13.8 % 05/30/2024 1:46 PM CDT [facility] PLT 198 145 - 358 x10'3/uL 05/30/2024 1:46 PM CDT [facility] MPV 11.8 8.8 - 12.3 FL 05/30/2024 1:46 PM CDT [facility] SEG NEUTROPHILS 56.6 % 1:46 PM CDT [facility] LYMPHOCYTES 27.4 % 05/30/2024 1:46 PM CDT [facility] MONOCYTES 9.1 % 05/30/2024 1:46 PM CDT [facility] EOSINOPHILS 5.1 % 05/30/2024 1:46 PM CDT [facility] BASOPHILS 1.3 % 05/30/2024 1:46 PM CDT [facility] IMMATURE GRANS % 0.5 % 05/31/19 1:46 PM CDT [facility] NRBC % 0.0 % 05/30/2024 1:46 PM CDT [facility] ABS. NEUTROPHILS 3.13 2.30 - 5.70 x10'3/uL 05/30/2024 1:46 PM CDT [facility] ABS. LYMPHOCYTES 1.51 1.10 - 3.30 x10'3/uL 05/30/2024 1:46 PM CDT [facility] ABS. MONOCYTES 0.50 0.30 - 0.80 x10'3/uL 05/30/2024 1:46 PM CDT [facility] ABS. EOSINOPHILS 0.28 0.03 - 0.45 x10'3/uL 05/30/2024 1:46 PM CDT [facility] ABS. BASOPHILS 0.07 0.01 - 0.09 x10'3/uL 05/30/2024 1:46 PM CDT [facility] ABS. IMMATURE GRANULOCYTES 0.03 0.00 - 0.09 x10'3/uL 05/30/2024 1:46 PM CDT [facility] ABS. NUCLEATED RBC'S 0.00 0.00 - 0.01 x10'3/uL 05/30/2024 1:46 PM CDT [facility] 05/30/2024 7:27 AM CDT Avery Dotson MD LABORATORY Final Result [facility] [address] [place] [address], * COLONOSCOPY GENERIC (01/12/2019) 01/12/2019 Narrative 01/12/2019 Ordered by an unspecified provider. us Documents Scanned SCANNING Final Result from Last 3 Months or Most Recently Relevant to Health Maintenance Insurance Member Subscriber Plan / Payer (Ef fective 2023-Present) Name:SmithEnrique adams Dov Relation to Subscriber:Spouse Name:Mago Smith Date of :1961 Address: [address] [place] [address] Payer ID:Not on file Group ID:Not on file Type:Not on file Address: [facility] [id number] [place] [phone] Care Teams Customer Account Manager Relationship Specialty Start Date End Date Avery Dotson MD [address] [place] [address] PCP - General FAMILY PRACTICE 06/27/19
--- OUTSIDE RECORDS SUMMARY | 2024-07-05 12:40 | XMS_ITS | Encounter Summary ---
Author Organization [facility] Address [facility] [place] [address] Care Team Providers Care Loss Prevention Representative Name Role Phone Avery Dotson MD Primary Care Provider [phone] Encounter Details Date Type Department Care Team (Latest Contact Info) Description 08/13/2021 [employer] Message Enc [facility] Multispecialty Care - [place] [address] [facility], [facility] [address] [place] [address] [place], [facility] Provider Please call to schedule your annual wellness visit Social History Tobacco Use Types Packs/Day Years Used Date Smoking Tobacco: Never Smokeless Tobacco: Never Comments:Will not start smok ing Alcohol Use Standard Drinks/Week Comments Not Currently 0 (1 standard drink = 0.6 oz pur e alcohol) PHQ-2 Answer Date Recorded PHQ-2 Score - If the patient scores above 3, please move on to questions 3-9 0 07/17/2020 Sex and Gender Information Value Date Recorded Sex Assigned at Not on file Legal Sex Male 10:06 PM [employer] Gender Identity Not on file Sexual Orientation Not on file documented as of this encounter Plan of Treatment Not on file documented as of this encounter Visit Diagnoses Not on filedocumented in this encounter Care Teams Loss Prevention Representative Relationship Specialty Start Date End Date Avery Dotson MD [address] [place], [place] [id number] PCP - General FAMILY PRACTICE 06/27/19 documented as of this encounter
--- OUTSIDE RECORDS SUMMARY | 2024-07-05 12:40 | XMS_ITS | Encounter Summary ---
Author Organization [facility] Address [address] [place] [address] Phone Care Team Providers Care City Attorney Name Role Phone Avery Dotson MD Primary Care Provider [phone] Encounter Details Date Type Department Care Team (Late st Contact Info) Description 01/16/2020 Patient Related Communication [facility] Provider, Interface Default Social History Tobacco Use [...] on filedocumented in this encounter Care Teams City Attorney Relationship Specialty Start Date End Date Avery Dotson MD [address] [place] [id number] PCP - General Family Medicine 07/20/18 documented as of this encounter
== END 2024-07-05 11:08 | disposition home or self-care (01) ==
PROVIDERS: Visit Provider Nurse Practitioner Family
DX: N20.0 Calculus of kidney (principal)
CPT/HCPCS: 74018